=== PATIENT | male | born 1950 | race Caucasian/White ===

== ENCOUNTER 2023-05-15 05:54 | Day surgery (SDC) | payer MEDICARE, BC ==
[2023-05-15] MEDS ORDERED: Dextrose 5%-0.45% NaCl 1,000 ML IV SCH (06:30)
[2023-05-15] MEDS ORDERED: fentaNYL 100 MCG/2 ML SDV IV ONE ×3 (07:17→07:26)
[2023-05-15] MEDS ORDERED: Midazolam 1 MG/ML 2 ML SDV IV ONE ×7 (07:17→07:36)
[2023-05-15] MEDS ORDERED: Midazolam 1 MG/ML 2 ML SDV ONE (07:17)
[2023-05-15] MEDS ORDERED: fentaNYL 100 MCG/2 ML SDV ONE (07:17)
== END 2023-05-15 09:35 | disposition home or self-care (01) ==
LOC: DL.ENDO 05:54
PROVIDERS: ATTEND Internal Medicine Gastroenterology
DX: Z12.11 Encounter for screening for malignant neoplasm of colon (principal); K57.30 Diverticulosis of large intestine without perforation or abscess without bleeding
CPT/HCPCS: G0121; J2250; J3010; J7042